=== PATIENT | female | born 1970 | race Caucasian/White ===

== ENCOUNTER → 2020-06-13 10:09 | Outpatient (CLI) | payer BC, SELFPAY ==
--- NOTE | ~2020-06-13 | US_ITS ---
EXAMINATION: US pelvic complete w TV DATE: 06/13/2020 11:00 INDICATION: Abnormal uterine bleeding Comparison:Ultrasound dated 08/24/2017 TECHNIQUE: Multiple transabdominal and endovaginal sonographic images of the pelvis performed. FINDINGS: The uterus measures 11.8 x 4.8 x 5.3 cm. The endometrial complex measures 5 mm. The right ovary measures 2.1 x 1.6 x 2.3 cm and the left ovary measures 2.8 x 1.5 x 2.9 cm. There ar e small follicles in each ovary. There is no free fluid in the pelvis. There are no abnormal masses seen on either side. IMPRESSION: 1. Enlarged uterus. Otherwise, unremarkable pelvic ultrasound. Reviewed, dictated and finalized at location B.
== END ==
PROVIDERS: Visit Provider Obstetrics & Gynecology
DX: N93.9 Abnormal uterine and vaginal bleeding, unspecified (principal)
CPT/HCPCS: 76830; 76856